=== PATIENT | male | born 1995 | race Caucasian/White ===

== ENCOUNTER 2017-02-25 20:21 | Emergency (ER) | payer OTHER ==
[2017-02-25 20:34] VITALS: BP 130/78
[2017-02-25] MEDS ORDERED: IBUPROFEN 600 MG TABLET. PO ONE (20:45)
--- NOTE | 2017-02-25 21:11 | PHYS DOC ---
Adult General Chief Complaint Chief Complaint: HAND PROBLEM HPI HPI 21-year-old male presents to the emergency department complaining of left thumb pain after baseball injury. Patient states he was wearing a glove and tried to catch a ball. The blood didn't have much padding and his thumb got twisted and injured I the ball hitting it. Pain with palpation and range of motion of his mid thumb since no prior injury. No prior surgeries. No prior chronic thumb pain or disability. Review of Systems Review of Systems Constitutional: Denies fever or chills [] Eyes: Denies change in visual acuity, redness, or eye pain [] HENT: Denies nasal congestion or sore throat [] Respiratory: Denies cough or shortness of breath [] Cardiovascular: No additional information not addressed in HPI [] GI: Denies abdominal pain, nausea, vomiting, bloody stools or diarrhea [] : Denies dysuria or hematuria [] Musculoskeletal: Denies back pain or joint pain [] Integument: Denies rash or skin lesions [] Neurologic: Denies headache, focal weakness or sensory changes [] Endocrine: Denies polyuria or polydipsia [] Current Medications Current Medications Current Medications Medications (Trade) Dose Ordered Sig/Luda Start Time Stop Time Status Last Admin Dose Admin Ibuprofen (Motrin) 600 mg 1X ONCE 02/25/17 20:45 02/25/17 20:46 UNV 02/25/17 20:49 600 MG Physical Exam Physical Exam L appearing patient no acute distress mild soft tissue tenderness mid left thumb. Normal flexion and extension. Neurovascularly intact Constitutional: Well developed, well nourished, no acute distress, non-toxic appearance. [] HENT: Normocephalic, atraumatic, bilateral external ears normal, oropharynx moist, no oral exudates, nose normal. [] Eyes: EOMI, conjunctiva normal, no discharge. [] Neck: Normal range of motion, no tenderness, supple, no stridor. [] Cardiovascular: No tachycardia Lungs & Thorax: Normal and symmetrical chest wall excursion with respiration. No tachypnea Abdomen: Bowel sounds normal, soft, no tenderness, no masses, no pulsatile masses. [] Skin: Warm, dry, no erythema, no rash. [] Back: No tenderness, no CVA tenderness. [] Extremities: No tenderness, no cyanosis, no clubbing, ROM intact, no edema. [] Neurologic: Alert and oriented X 3, normal motor function, normal sensory function, no focal deficits noted. [] Psychologic: Affect normal, judgement normal, mood normal. [] EKG EKG [] Radiology/Procedures Radiology/Procedures [] Course & Med Decision Making Course & Med Decision Making Pertinent Labs and Imaging studies reviewed. (See chart for details) Signs and symptoms consistent with sprain confirmed by negative x-ray. Aluminum/ foam splint applied by SHERIE Kaiser volar aspect left thumb. Patient were to wear the splint until follow-up with orthopedics. Rest ice elevate and ibuprofen as needed for pain and patient's were critical importance of close follow-up with orthopedic specifically hand surgery for reevaluation and to optimize his recovery without which there is always a possibility of chronic pain and eventual permanent disability [] Dragon Disclaimer Dragon Disclaimer This chart was dictated in whole or in part using Voice Recognition software in a busy, high-work load, and often noisy Emergency Department environment. It may contain unintended and wholly unrecognized errors or omissions. Departure Departure: Impression: Primary Impression: Sprain of left thumb Disposition: HOME, SELF-CARE Condition: IMPROVED Referrals: CHERI WICK (PCP) Patient Instructions: Thumb Sprain Additional Instructions: You have a left thumb sprain. Rest ice and elevate. Wear splint until follow-up with your doctor for reevaluation in several days and referral to orthopedics as needed. Motor grams of ibuprofen every 6 hours as needed for discomfort. Call to make appointment [phone] Li . Return for new or severe symptoms PAT SHIELDS MD Feb 25, 2017 21:11
--- NOTE | 2017-02-26 07:15 | RAD ---
Indication: Pain in the left hand. Time of exam 2037 hours. 3 views of the left thumb were obtained. The alignment is normal. The phalanges appear intact. The first metacarpal is intact. No fractures are seen. The soft tissues are unremarkable. Impression: No acute bony abnormality is detected.
== END 2017-02-25 21:20 | disposition home or self-care (01) ==
LOC: ER 20:21
DX: S63.682A Other sprain of left thumb, initial encounter (principal); W21.03XA Struck by baseball, initial encounter; Y93.64 Activity, baseball; Y99.8 Other external cause status; Y92.89 Other specified places as the place of occurrence of the external cause
CPT/HCPCS: 29125; 29130; 73140; 99284-25

== ENCOUNTER 2017-08-08 18:02 | Emergency (ER) | payer OTHER ==
[2017-08-08 18:10] VITALS: BP 121/55
[2017-08-08] MEDS ORDERED: SULF1TAB24 PO (18:46)
[2017-08-08] MEDS ORDERED: MUPI15CR TP (18:46)
[2017-08-08] MEDS ORDERED: SMZ/TMP 800/160MG TABLET. PO ONE ×2 (18:49→19:00)
--- NOTE | 2017-08-08 18:51 | PHYS DOC ---
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 Patient states he first noticed what he thought was a bug bite at the medial aspect of his left upper arm yesterday morning. Informed a head like a pimple and he tried to pop it yesterday thinking he would remove some pus. Since that time it has scabbed over however he did notice a halo of redness (no bull's-eye ) around the scabbed area yesterday. Today the redness had increased in size and felt tender and warm so he came for evaluation. He denies any tick bites no fever chills sweats or body aches no itching no facial or intraoral swelling. Denies cough wheeze hoarseness or lump in throat. No other pre-arrival treatment. Onset: yesterday Severity: mild Pain/Injury Location: left arm Method of Injury: other Modifying Factors: worse with jarring, worse with movement Allergies: Coded Allergies: No Known Allergies (Verified Allergy, Unknown, 02/25/17) Past Medical History Medical History: no pertinent history Surgical History: no surgical history Social History Smoker: non-smoker Alcohol: none Drugs: none Review of Systems Constitutional: denies chills, denies fever EENTM: denies throat swelling, denies mouth swelling Respiratory: denies cough, denies shortness of breath, denies wheezing Cardiovascular: denies chest pain, denies palpitations Gastrointestinal: denies abdominal pain, denies nausea, denies vomiting Musculoskeletal: denies back pain, denies muscle pain, denies neck pain Skin: see HPI Physical Exam General Appearance: WD/WN, no apparent distress HEENT: PERRL/EOMI, normal ENT inspection, pharynx normal Neck: non-tender, supple Cardiovascular/Respiratory: regular rate, rhythm, normal peripheral pulses, normal breath sounds, no respiratory distress Shoulder: soft tissue tenderness (anterior aspect of the left upper arm there is a 0.5 cm scab lesion with a 5 cm halo of induration and erythema with sharply demarcated border. 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 I discussed [id number] prescription medications as well as signs and symptoms to monitor and indications for urgent return to the department. The patient's questions were answered and he expressed agreement and understanding of treatment plan. Departure Time of Disposition: 18:47 Disposition: 01 HOME, SELF-CARE Diagnosis: LUE cellulitis likely MRSA Condition: GOOD Patient Instructions: Cellulitis, [id number], MRSA Overview Additional Instructions: Keep wound covered, clean and dry. Warm compresses 4 times daily. OTC tylenol/ibuprofen as needed. Rx: bactrim ds, bactroban Follow up on Post Friday as discussed. Return to ED with new or changing symptoms. CASEY HERNANDEZ DO Aug 08, 2017 18:51
== END 2017-08-08 18:56 | disposition home or self-care (01) ==
LOC: ER 18:02
DX: L03.114 Cellulitis of left upper limb (principal); S40.862A Insect bite (nonvenomous) of left upper arm, initial encounter; W57.XXXA Bitten or stung by nonvenomous insect and other nonvenomous arthropods, initial encounter; Y93.89 Activity, other specified; Y99.8 Other external cause status; Y92.89 Other specified places as the place of occurrence of the external cause
CPT/HCPCS: 99283

== ENCOUNTER 2018-01-05 15:28 | Emergency (ER) | payer OTHER ==
[~2018-01-05 15:28] MED LIST: MUPI15CR TP; SULF1TAB24 PO
--- NOTE | 2018-01-05 16:44 | PHYS DOC ---
Past History Past Medical History: No Pertinent History Past Surgical History: No Surgical History Alcohol Use: None Drug Use: None Adult General Chief Complaint Chief Complaint: BACK PAIN OR INJURY [facility] HPI 22-year-old male patient states he had the current low back injury and had PT test 4 days ago with increasing his low back as a constant pain without radiation. Patient denies focal neuro deficit, urinary and bowel incontinence, fever and chills, nausea and vomiting. Patient states he was seen by his primary care physician and had prescription of lidocaine patch and Naprosyn but did not have light duty and his pain getting worse with activity that he does. Review of Systems Review of Systems Constitutional: Denies fever or chills [] Eyes: Denies change in visual acuity, redness, or eye pain [] HENT: Denies nasal congestion or sore throat [] Respiratory: Denies cough or shortness of breath [] Cardiovascular: No additional information not addressed in HPI [] GI: Denies abdominal pain, nausea, vomiting, bloody stools or diarrhea [] : Denies dysuria or hematuria [] Musculoskeletal: Reports back pain, denies joint pain Integument: Denies rash or skin lesions [] Neurologic: Denies headache, focal weakness or sensory changes [] Endocrine: Denies polyuria or polydipsia [] All other systems were reviewed and found to be within normal limits, except as documented in this note. Allergies Allergies Allergies Coded Allergies Type Severity Reaction Last Updated Verified No Known Allergies Allergy Unknown 02/25/17 Yes Physical Exam Physical Exam Constitutional: Well developed, well nourished, mild distress, non-toxic appearance. [] HENT: Normocephalic, atraumatic Eyes: PERRLA, EOMI, conjunctiva normal, no discharge. [] Neck: Normal range of motion, no tenderness, supple, no stridor. [] Cardiovascular:Heart rate regular rhythm, no murmur [] Lungs & Thorax: Bilateral breath sounds clear to auscultation [] Abdomen: Bowel sounds normal, soft, no tenderness, no masses, no pulsatile masses. [] Skin: Warm, dry, no erythema, no rash. [] Back: No midline tenderness, no CVA tenderness. Bilateral paraspinal muscle spasm. [] Extremities: No tenderness, no cyanosis, no clubbing, ROM intact, no edema. [] Neurologic: Alert and oriented X 3, normal motor function, normal sensory function, no focal deficits noted. [] Psychologic: Affect normal, judgement normal, mood normal. [] EKG EKG [] Radiology/Procedures Radiology/Procedures [] Course & Med Decision Making Course & Med Decision Making discharge: I've spoken with the patient and/or caregivers. I've explained the patient's condition, diagnosis and treatment plan based on information available to me at this time. I've answered the patient's and/or caregivers questions and addressed any concerns. The patient and/or caregivers have a good understanding the patient's diagnosis, condition and treatment plan as can be expected at this point. Vital signs have been stabilized. The patient's condition is stable for discharge from the emergency department. The patient will pursue further outpatient evaluation with her primary care provider or other designated consulting physician as outlined in the discharge instructions. Patient and/or caregivers are agreeable to this plan of care and follow-up instructions have been explained in detail. The patient and/or caregivers have received these instructions in written format and expressed understanding of these discharge instructions. The patient and her caregivers are aware that if any significant change in condition or worsening of symptoms should prompt him to immediately return to this of the closest emergency department. If an emergent department is not readily available I would encourage him to call 911. Dragon Disclaimer Dragon Disclaimer This electronic medical record was generated, in whole or in part, using a voice recognition dictation system. Departure Departure: Impression: Primary Impression: Encounter to obtain excuse from work Additional Impression: Lumbosacral strain Disposition: HOME, SELF-CARE (At 1643) Condition: STABLE Referrals: HAWA SAM DO, [facility] (PCP) Patient Instructions: Lumbosacral Strain Additional Instructions: Apply ice on the affected area. Continue medication given by your primary care physician Follow-up with your primary care physician in 3-5 days Return to ER if not getting better Problem Qualifiers JONA ISLAS MD January 05, 2018 16:44
[2018-01-05 16:47] VITALS: BP 98/55
== END 2018-01-05 16:47 | disposition home or self-care (01) ==
LOC: ER 15:28
DX: Z02.89 Encounter for other administrative examinations (principal); S39.012A Strain of muscle, fascia and tendon of lower back, initial encounter; X58.XXXA Exposure to other specified factors, initial encounter; Y93.89 Activity, other specified; Y99.8 Other external cause status; Y92.89 Other specified places as the place of occurrence of the external cause
CPT/HCPCS: 99281